=== PATIENT | male | born 1985 | race Caucasian/White ===

== ENCOUNTER 2024-12-17 02:35 | Emergency (ER) | payer OTHER ==
[2024-12-17] MEDS: Ketorolac 30 MG/ML SDV IVPUSH ONE (03:56)
== END 2024-12-17 06:07 | disposition home or self-care (01) ==
LOC: MW.ED 02:35
DX: M54.50 Low back pain, unspecified (principal); V89.2XXA Person injured in unspecified motor-vehicle accident, traffic, initial encounter
CPT/HCPCS: 72131; 96374; 99283; A9270; J1885

== ENCOUNTER 2024-12-27 19:17 | Emergency (ER) | payer SELFPAY ==
[2024-12-27] MEDS: Amoxicillin/Clavulanate K 875-125 MG Tab PO ONE (20:06)
[2024-12-27] MEDS: Lidocaine 2% Viscous Solution 15 ML UD PO ONE (20:06)
[2024-12-27] MEDS: Acetaminophen/oxyCODONE 325-5 MG Tab PO ONE (20:06)
[2024-12-27] MEDS: Benzocaine 20% Topical Spray UD MUCMEM ONE (20:06)
== END 2024-12-27 20:24 | disposition home or self-care (01) ==
LOC: MW.ED 19:17
DX: K08.89 Other specified disorders of teeth and supporting structures (principal)
CPT/HCPCS: 99282; A9270; J3490; 99283